=== PATIENT | female | born 1970 | race Caucasian/White ===

== ENCOUNTER 2017-07-17 10:39 | Day surgery (SDC) | payer MEDICARE ==
[~2017-07-17] VITALS: Ht 170.2 cm; Wt 84.6 kg
[~2017-07-17 10:39] MED LIST: ACET-458 PO; ALBU1.25 NEB; ALBU8.5H8 INH; ASPI-691 PO; ATOR-2 PO; ESOM40CA PO; FERR325T18 PO; FLUO20CA8 PO; FLUT16SP2 NS; FLUT1DIS IH; FLUT1DIS5 IH; HYDR-3237 PO; IBUP-1223 PO; IRON18TA PO; LEVO75TA5 PO; METH40TA3 PO; METR500T8 PO; NEBULIZER INH; TIOT18CA INH; TYLENOL PM PO; [UNRECOGNIZED DRUG - OTHER]
[2017-07-17] MEDS ORDERED: LACTATED RINGERS 1,000 ML IV SCH (11:16)
[2017-07-17 11:39] VITALS: BP 150/94
[2017-07-17] MEDS ORDERED: FENTANYL PF 100 MCG/2ML ONE (11:43)
[2017-07-17] MEDS ORDERED: MIDAZOLAM 1 MG/ML, 2ML ONE (11:43)
[2017-07-17] MEDS ORDERED: KETOROLAC 30 MG/1 ML IV PRN (12:30)
[2017-07-17] MEDS ORDERED: FENTANYL PF 100 MCG/2ML IV PRN (12:30)
[2017-07-17] MEDS ORDERED: OXYcodone 5 MG/5 ML ORAL.SOL UDC PO PRN (12:30)
[2017-07-17] MEDS ORDERED: ONDANSETRON 2MG/ML, 2ML IVPush PRN (12:30)
[2017-07-17] MEDS ORDERED: HYDROmorphone 1 MG/ML, 1ML IV PRN (12:30)
[2017-07-17] MEDS ORDERED: MEPERIDINE/PF 25MG/0.5ML IVPush PRN (12:30)
[2017-07-17] MEDS ORDERED: ACETAMINOPHEN 325 MG TABLET PO PRN (12:30)
[2017-07-17] MEDS ORDERED: PROPOFOL 10 MG/ML, 20ML ONE (12:35)
== END 2017-07-17 14:25 ==
LOC: OUT 10:39
PROVIDERS: ATTEND Internal Medicine
DX: K31.89 Other diseases of stomach and duodenum (principal); J45.909 Unspecified asthma, uncomplicated; E78.5 Hyperlipidemia, unspecified; E03.9 Hypothyroidism, unspecified; Z88.8 Allergy status to other drugs, medicaments and biological substances
CPT/HCPCS: 43239; 88305; J2250; J2704; J3010; J7120

== ENCOUNTER → 2017-12-03 | Outpatient (CLI) | payer MEDICARE ==
[~2017-12-03] MED LIST changes: +FLUT1DIS3 INH; +LEVO88TA2 PO; +LINA290C PO; +MULT-516 PO; +PARO20TA98 PO
[2017-12-03 16:11] LABS: BASOPHILS # (AUTO) 0.03 x10^3/uL (0-0.1); BASOPHILS % (AUTO) 1 % (0-1); EOSINOPHILS # (AUTO) 0.04 x10^3/uL (0-0.4); EOSINOPHILS % (AUTO) 1 % (1-7); LYMPHOCYTES # (AUTO) 1.44 x10^3/uL (1-3.4); LYMPHOCYTES % (AUTO) 33 % (22-44); MD NO; MEAN CORPUSCULAR HEMOGLOBIN 31.4 pg (27.0-34.8); MEAN CORPUSCULAR HGB CONC 33.8 g/dL (32.4-35.8); MEAN CORPUSCULAR VOLUME 93.1 fL (80-100); MEAN PLATELET VOLUME 8.9 fL (7.4-10.4); MONOCYTES # (AUTO) 0.32 x10^3/uL (0.2-0.8); MONOCYTES % (AUTO) 7 % (2-9); NEUTROPHILS # (AUTO) 2.52 x10^3/uL (1.8-6.8); NEUTROPHILS % (AUTO) 58 % (42-75); PLATELET COUNT 207 x10^3/uL (130-400)
[2017-12-03 16:14] LABS: ALANINE AMINOTRANSFERASE 66 U/L (12-78); ALBUMIN 3.4 g/dL (3.4-5.0); ANION GAP 7 mmol/L (5-15); CALCIUM 8.4 mg/dL (8.5-10.1); CHLORIDE 106 mmol/L (98-107); CREATININE 0.69 mg/dL (0.55-1.02)
[2017-12-03 16:16] LABS: ALKALINE PHOSPHATASE 67 U/L (45-117); BILIRUBIN,TOTAL 0.4 mg/dL (0.2-1.0)
[2017-12-03 16:28] LABS: INTERNATIONAL NORMALIZED RATIO 0.99 (0.93-1.1); PROTHROMBIN TIME 10.2 Seconds (9.6-11.5)
[2017-12-03 16:41] LABS: MICROSCOPIC INDICATED
[2017-12-03 16:45] LABS: CULTURE INDICATED? NO
[2017-12-03 16:48] LABS: HEMOGLOBIN A1C 5.3 % (4.2-6.3)
== END | disposition home or self-care (01) ==
LOC: STAR 14:56
PROVIDERS: ATTEND Orthopaedic Surgery
DX: Z01.818 Encounter for other preprocedural examination (principal); M16.12 Unilateral primary osteoarthritis, left hip
CPT/HCPCS: 36415; 80053; 81001; 83036; 85025; 85610; 85730; 87081; 87806; 93005; G0475

== ENCOUNTER 2019-11-10 15:28 | Emergency (ER) | payer MEDICARE ==
[~2019-11-10] VITALS: Ht 170.2 cm; Wt 83.8 kg
[~2019-11-10 15:28] MED LIST changes: +DOCU-131 PO; +ENOX40SY4 SQ; +FLUO20CA23 PO; -FLUO20CA8 PO; +METR-90 PO; -METR500T8 PO; +ONDA4TAB10 PO
--- NOTE | 2019-11-10 17:57 | NUR ---
from lobby to room at this time.
[2019-11-10 18:04] VITALS: BP 126/83
--- NOTE | 2019-11-10 18:11 | NUR ---
PT PRESENTING FOR BODY ACHES, FATIGUE, HORSE VOICE AND SOB X4 DAYS. CONNECTED TO MONITORING, VSS. BS THROUGHOUT COURSE CRACKLES WITH EXP. FAMILY AT BEDSIDE. CALL LIGHT WIHTIN REACH. PIT ORDERS COMPLETED. AWAITING MD ASSESSMENT AND FURTHER INSTRUCTION AT THIS TIME
[2019-11-10] MEDS ORDERED: ALBUTEROL/IPRATROPIUM 2.5MG/0.5MG, 3 ML NPPB ONE (19:00)
[2019-11-10] MEDS ORDERED: ALBUTEROL/IPRATROPIUM 2.5MG/0.5MG, 3 ML ONE (19:11)
--- NOTE | 2019-11-10 19:13 | NUR ---
ORDERS RECEIVED, PT MEDICATED PER MAR. AWAITING TREATMENT AND DISPO
--- NOTE | 2019-11-10 19:25 | NUR ---
RESP TREATMENT COMPLETE. AWAITING RECHECK
== END 2019-11-10 20:07 | disposition home or self-care (01) ==
LOC: ED 20:00
DX: B34.9 Viral infection, unspecified (principal); F17.200 Nicotine dependence, unspecified, uncomplicated
CPT/HCPCS: 71046; 94640; 99283; J7512

== ENCOUNTER 2020-12-30 14:05 | Emergency (ER) | payer MEDICARE ==
[~2020-12-30] VITALS: Ht 170.2 cm; Wt 70.5 kg
[~2020-12-30 14:05] MED LIST changes: +OMNIPAQUE 350 MG/ML, 100ML BOTTLE ONE
--- NOTE | 2020-12-30 14:23 | NUR ---
EKG IN TRIAGE
[2020-12-30 14:49] LABS: BASOPHILS % (AUTO) 1 % (0-1); EOSINOPHILS % (AUTO) 8 % (1-7); LYMPHOCYTES % (AUTO) 29 % (22-44); MEAN CORPUSCULAR HGB CONC 33.2 g/dL (32.4-35.8); MEAN PLATELET VOLUME 8.5 fL (7.4-10.4); MONOCYTES % (AUTO) 9 % (2-9); NEUTROPHILS % (AUTO) 52 % (42-75); PLATELET COUNT 246 x10^3/uL (130-400); RED BLOOD COUNT 4.08 x10^6/uL (3.82-5.3); RED CELL DISTRIBUTION WIDTH 15.1 % (9.6-15.2)
[2020-12-30 14:51] LABS: MD NO
--- NOTE | 2020-12-30 14:56 | NUR ---
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
[2020-12-30 15:01] LABS: ALBUMIN 3.4 g/dL (3.4-5.0); ANION GAP 4 mmol/L (5-15); CALCIUM 8.5 mg/dL (8.5-10.1); CHLORIDE 110 mmol/L (98-107); CREATININE 0.68 mg/dL (0.55-1.02)
--- NOTE | 2020-12-30 15:11 | NUR ---
CC OF DIFFICULTY BREATHING SINCE JULY. PT STATES SHE WOKE UP THIS AM WITH TROUBLE BREATHING AND TOOK HER INHALER AND HAD IMPROVEMENT. PT STATES SHE HAD PNA IN JULY AND "SINCE THEN I HAVENT BEEN BREATHING NORMALLY". PT ALSO STATES "I KNOW THAT AN XRAY AND LAB WORK WONT SHOW ANYTHING". PT HAS HX OF ASTHMA. PT SITTING UPRIGHT IN GURNEY, RESP EVEN AND UNLABORED, SPEAKING IN FULL SENTENCES REQUESTING PILLOWS. SO AT BEDSIDE.
[2020-12-30] MEDS ORDERED: ALBUTEROL/IPRATROPIUM 2.5MG/0.5MG, 3 ML NPPB ONE (16:00)
[2020-12-30] MEDS ORDERED: ALBUTEROL/IPRATROPIUM 2.5MG/0.5MG, 3 ML ONE (16:04)
--- NOTE | 2020-12-30 16:44 | NUR ---
PT REPORTS FEELING " A LITTLE BETTER" AFTER BREATHING TREATMENT.
[2020-12-30 19:11] VITALS: BP 123/74
== END 2020-12-30 19:13 | disposition home or self-care (01) ==
LOC: ED 17:13
DX: J44.1 Chronic obstructive pulmonary disease with (acute) exacerbation (principal); R06.00 Dyspnea, unspecified
CPT/HCPCS: 36415; 71045; 71275; 80048; 82040; 83880; 85025; 85379; 93005; 94640; 99285; J7512; Q9967

== ENCOUNTER → 2021-01-10 | Outpatient (CLI) | payer MEDICARE ==
[~2021-01-10] MED LIST changes: -OMNIPAQUE 350 MG/ML, 100ML BOTTLE ONE
== END | disposition home or self-care (01) ==
LOC: CFH 13:17
PROVIDERS: ATTEND Nurse Practitioner Family
DX: R06.00 Dyspnea, unspecified (principal)
CPT/HCPCS: 71250